=== PATIENT | male | born 2000 | race Caucasian/White ===

== ENCOUNTER 2023-06-09 04:47 | Emergency (ER) | payer SELFPAY ==
[~2023-06-09] VITALS: Ht 162.6 cm; Wt 68.9 kg
[2023-06-09 05:28] VITALS: BP_SYST 128; PULSE 95; RESP 20; TEMP 97.1; O2SAT 97
[2023-06-09] MEDS ORDERED: IBUP-1969 PO (05:48)
[2023-06-09] MEDS ORDERED: AUG875 PO (05:48)
[2023-06-09 06:39] VITALS: BP_SYST 128; PULSE 95; RESP 20; TEMP 97.1; O2SAT 97
== END 2023-06-09 06:39 | disposition home or self-care (01) ==
LOC: SED 04:47
DX: K04.7 Periapical abscess without sinus (principal); K08.89 Other specified disorders of teeth and supporting structures; Z79.899 Other long term (current) drug therapy
CPT/HCPCS: 99283

== ENCOUNTER 2023-06-12 04:36 | Emergency (ER) | payer SELFPAY ==
[~2023-06-12] VITALS: Ht 162.6 cm; Wt 68.0 kg
[~2023-06-12 04:36] MED LIST: AUG875 PO; IBUP-1969 PO
[2023-06-12 06:02] VITALS: BP_SYST 133; RESP 18; TEMP 97.7; O2SAT 100
[2023-06-12] MEDS ORDERED: [UNRECOGNIZED DRUG - CODE] PO (06:45)
[2023-06-12 07:01] VITALS: BP_SYST 121; PULSE 72; RESP 16; TEMP 98.2; O2SAT 98
== END 2023-06-12 07:02 | disposition home or self-care (01) ==
LOC: SED 04:36
DX: R05.9 Cough, unspecified (principal); Z79.899 Other long term (current) drug therapy
CPT/HCPCS: 99282